=== PATIENT | female | born 1955 | race Caucasian/White ===

== ENCOUNTER 2018-11-19 23:02 | Emergency (ER) ==
[2018-11-19 23:15] VITALS: BP 150/85; TEMP 98.3; BMI 33.1
--- NOTE | 2018-11-19 23:47 | ED.PDOC ---
General ED Provider: Dr. JANELLE DUMONT Chief Complaint: Fall Stated Complaint: fell yesterday or tiped backwarsd hitting a trunk.No OLDS symptom free and normal neurologicak eval,Dmall healing laceration to the parietal scalp. Time Seen by Physician: 23:25 Mode of Arrival: Walk-In Information Source: Patient Exam Limitations: No limitations Primary Care Provider: MIREYA BARND Nursing and Triage Documentation Reviewed and Agree: Yes Does patient meet sepsis criteria?: No System Inflammatory Response Syndrome: Not Applicable Sepsis Protocol: For patient's 13 years and over: Temp is 96.8 and below OR 101 and greater Pulse >90 BPM Resp >20/minute Acutely Altered Mental Status Are patient's symptoms suggestive of a new infection, such as: -Pneumonia -Skin, Soft Tissue -Endocarditis -UTI -Bone, Joint Infection -Implantable Device -Acute Abdominal Infection -Wound Infection -Meningitis -Blood Stream Catheter Infection -Unknown Musculoskeletal Complaint Exam - Shoulder Pain Complaint/Exam Onset/Duration: fell bacwards on a trunk yesterday, Symptoms Are: Resolved Initial Severity: Mild Current Severity: None Location: Reports: Discrete Character: Reports: Aching Alleviating: Reports: Rest, Ice Aggravating: Reports: None Associated Signs and Symptoms: Reports: Swelling, Redness, Bruising DVT Risk Factors: Reports: None Septic Arthritis Risk Factors: Reports: None Related Surgical History: Reports: None Shoulder Findings: Present: Swelling, Ecchymosis Review of Systems - Review Of Systems Constitutional: Reports: No symptoms Eyes: Reports: No symptoms Ears, Nose, Mouth, Throat: Reports: No symptoms Respiratory: Reports: No symptoms Cardiac: Reports: No symptoms GI: Reports: No symptoms : Reports: No symptoms Musculoskeletal: Reports: No symptoms Neurological: Reports: No symptoms Endocrine: Reports: No symptoms Hematologic/Lymphatic: Reports: No symptoms All Other Systems: Reviewed and Negative Past Medical History - Past Medical History Previously Healthy: Yes Endocrine: Reports: None Cardiovascular: Reports: None Respiratory: Reports: None Hematological: Reports: None Gastrointestinal: Reports: None Genitourinary: Reports: None Neuro/Psych: Reports: None Musculoskeletal: Reports: None Cancer: Reports: None Last Menstrual Period: MENOPAUSAL AT 50 Y/O - Surgical History General Surgical History: Reports: None - Family History Family History: Reports: None - Social History Smoking Status: Current every day smoker, Light tobacco smoker Hx Substance Use: No Alcohol Screening: None - Immunizations Tetanus Shot up to Date: Yes (2011) Physical Exam - Physical Exam Appearance: Well-appearing Ill-appearing: None Pain Distress: None Eyes: AZALEA, EOMI, Conjunctiva clear ENT: Ears normal, Nose normal, Oropharynx normal Neck: Supple Respiratory: Airway patent, Breath sounds clear, Breath sounds equal Cardiovascular: RRR, Pulses normal, No rub, No murmur GI/: Soft, Nontender Musculoskeletal: Normal strength, ROM intact, No edema Skin: Warm, Dry Neurological: Sensation intact, Alert, Oriented Psychiatric: Affect appropriate Critical Care Note - Critical Care Note Total Time (mins): 0 Course - Course Orders, Labs, Meds: Orders Category Date Time Status Dressing Change [INCISION/WOUND CARE] ONCE CARE 11/19/18 23:51 Ordered Vital Signs: Temp Pulse Resp BP Pulse Ox 11/19/18 23:07 98.3 F 84 20 150/85 H 95 Departure - Departure Time of Disposition: 23:52 Disposition: HOME SELF-CARE Discharge Problem: Scalp contusion Instructions: Scalp Contusion in Children (ED), Scalp Contusion in Adults (ED) Condition: Good Pt referred to PMD for follow-up: Yes IPMP verified?: No Allergies/Adverse Reactions: Allergies Penicillins Adverse Reaction (Verified 11/19/18 23:15) Rash Home Medications: Ambulatory Orders Aspirin [Aspirin EC] 81 mg PO DAILY 11/19/18 Disposition Discussed With: Patient, Family
== END 2018-11-19 23:59 | disposition home or self-care (01) ==
LOC: ED 23:02
DX: S00.03XA Contusion of scalp, initial encounter (principal); S01.01XA Laceration without foreign body of scalp, initial encounter; W19.XXXA Unspecified fall, initial encounter; F17.210 Nicotine dependence, cigarettes, uncomplicated
CPT/HCPCS: 99282